=== PATIENT | male | born 1975 | race African-American/Black ===

== ENCOUNTER 2019-09-03 09:11 | Observation (INO) | payer BC, OTHER ==
[~2019-09-03] VITALS: Ht 193 cm; Wt 91.8 kg
[2019-09-03] MEDS ORDERED: MVI, ADULT NO.4 WITH VIT K 10 ML, FOLIC ACID INJ 1 MG, THIAMINE INJ 100 MG in IV RINGER... IV ONE ×4 (10:00)
[2019-09-03 10:10] LABS: BASO % 0 % (0-3); EOS % 0 % (0-3); HEMATOCRIT 46.4 % (39.0-53.0); HEMOGLOBIN 15.8 g/dL (13.0-17.5); LYMPH % 27 % (24-48); MEAN CORPUSCULAR HEMOGLOBIN 34 pg (25-35); MEAN CORPUSCULAR HGB CONC 34 g/dL (31-37); MEAN CORPUSCULAR VOLUME 100 fL (79-100); MONO # 0.9 x10^3/uL (0.0-1.1); MONO % 12 % (0-9); NEUT # 4.5 x10^3uL (1.8-7.7); NEUT % 60 % (31-73); PLATELET COUNT 113 x10^3/uL (140-400); RED BLOOD COUNT 4.64 x10^6/uL (4.30-5.70); RED CELL DISTRIBUTION WIDTH 14.9 % (11.5-14.5); WHITE BLOOD COUNT 7.5 x10^3/uL (4.0-11.0)
[2019-09-03] MEDS ORDERED: HALOPERIDOL LACT 5 MG/ML VIAL. IVP ONE (10:15)
[2019-09-03 10:19] LABS: BARBITURATES NEG (NEG); BENZODIAZEPINES NEG (NEG); CANNABINOIDS POS (NEG); COCAINE NEG (NEG); METHADONE NEG (NEG); OPIATES NEG (NEG); PHENCYCLIDINE NEG (NEG)
[2019-09-03 10:20] LABS: AMPHETAMINE/METHAMPHETAMINE NEG (NEG)
[2019-09-03 10:23] LABS: CALCIUM 8.9 mg/dL (8.5-10.1); CREATININE 0.8 mg/dL (0.7-1.3); GFR 128.3; POTASSIUM 3.9 mmol/L (3.5-5.1)
[2019-09-03 10:28] LABS: ALBUMIN 3.9 g/dL (3.4-5.0); ALBUMIN/GLOBULIN RATIO 0.9 (1.0-1.7); MAGNESIUM 1.7 mg/dL (1.8-2.4); TOTAL BILIRUBIN 0.9 mg/dL (0.2-1.0); TOTAL PROTEIN 8.2 g/dL (6.4-8.2)
--- NOTE | 2019-09-03 10:29 | PHYS DOC ---
Past History Past Medical History: No Pertinent History Past Surgical History: Other Additional Past Surgical Histo: Dental Additional Smoking Information: 1 PPD Alcohol Use: Heavy Additional Alcohol Information: reports drinking a "5th" per day Adult General Chief Complaint Chief Complaint: ALCOHOL INTOXICATION [facility] HPI Patient is a 44-year-old -[place] male with history of daily alcohol abuse who presents with acute alcohol intoxication and request for alcohol rehab. Patient has been drinking heavily daily for the past several months. Patient states he primarily drinks at night and prior to going to work. He last drink 30 minutes prior to ED arrival. Patient did contact his PCP to request hospital admission. Patient denies dizziness, headache, chest pain palpitations, shortness of breath, nausea, vomiting, hematemesis, coffee-ground emesis, abdominal pain, melena hematochezia. Reports feeling anxious and restless with the impulse to drink alcohol. No history of withdrawal seizures, hallucinations or DTs. No history of underlying coronary disease. Patient smokes marijuana but denies other drug use. [] Review of Systems Review of Systems Review of systems as per HPI. All other review of symptoms are negative. . Current Medications Current Medications Current Medications Medications (Trade) Dose Ordered Sig/Holden Start Time Stop Time Status Last Admin Dose Admin Haloperidol Lactate (Haldol) 2.5 mg 1X ONCE 09/03/19 10:15 09/03/19 10:16 DC 09/03/19 10:13 2.5 MG Multivitamins/ Minerals 10 ml/ Folic Acid 1 mg/ Thiamine HCl 100 mg/Lactated Ringer's 1,011.3 ml @ 1,011.3 mls/hr 1X ONCE 09/03/19 10:00 09/03/19 10:59 09/03/19 10:13 1,011.3 MLS/HR Allergies Allergies Allergies Coded Allergies Type Severity Reaction Last Updated Verified No Known Drug Allergies 09/03/19 No Physical Exam Physical Exam Constitutional: Well developed, well nourished, no acute distress, non-toxic appearance. [] HENT: Normocephalic, atraumatic, bilateral external ears normal, oropharynx moist, nose normal. [] Eyes: PERRLA, EOMI, conjunctiva normal, no discharge. [] Neck: Normal range of motion, no tenderness, supple. [] Cardiovascular:Heart rate regular rhythm, no murmur [] Lungs & Thorax: Bilateral breath sounds clear to auscultation [] Abdomen: Bowel sounds normal, soft, no tenderness. [] Skin: Warm, dry, no erythema, no rash. [] Back: No tenderness. [] Extremities: No tenderness, no edema. [] Neurologic: Alert and oriented X 3, normal motor function, normal sensory function, no focal deficits noted. [] Psychologic: Affect normal, judgement normal, mood normal. [] Current Patient Data Vital Signs Vital Signs Date Time Temp Pulse Resp B/P (MAP) Pulse Ox O2 Delivery O2 Flow Rate FiO2 09/03/19 09:28 98.7 97 18 147/105 (119) 98 Room Air Lab Results Laboratory Tests Test 09/03/19 09:48 09/03/19 09:54 White Blood Count 7.5 x10^3/uL (4.0-11.0) Red Blood Count 4.64 x10^6/uL (4.30-5.70) Hemoglobin 15.8 g/dL (13.0-17.5) Hematocrit 46.4 % (39.0-53.0) Mean Corpuscular Volume 100 fL (79-100) Mean Corpuscular Hemoglobin 34 pg (25-35) Mean Corpuscular Hemoglobin Concent 34 g/dL (31-37) Red Cell Distribution Width 14.9 % (11.5-14.5) H Platelet Count 113 x10^3/uL (140-400) L Neutrophils (%) (Auto) 60 % (31-73) Lymphocytes (%) (Auto) 27 % (24-48) Monocytes (%) (Auto) 12 % (0-9) H Eosinophils (%) (Auto) 0 % (0-3) Basophils (%) (Auto) 0 % (0-3) Neutrophils # (Auto) 4.5 x10^3uL (1.8-7.7) Lymphocytes # (Auto) 2.0 x10^3/uL (1.0-4.8) Monocytes # (Auto) 0.9 x10^3/uL (0.0-1.1) Eosinophils # (Auto) 0.0 x10^3/uL (0.0-0.7) Basophils # (Auto) 0.0 x10^3/uL (0.0-0.2) Sodium Level 144 mmol/L (136-145) Potassium Level 3.9 mmol/L (3.5-5.1) Chloride Level 101 mmol/L (98-107) Carbon Dioxide Level 29 mmol/L (21-32) Anion Gap 14 (6-14) Blood Urea Nitrogen 6 mg/dL (8-26) L Creatinine 0.8 mg/dL (0.7-1.3) Estimated GFR (Cockcroft-Gault) 128.3 BUN/Creatinine Ratio 8 (6-20) Glucose Level 117 mg/dL (70-99) H Calcium Level 8.9 mg/dL (8.5-10.1) Magnesium Level Pending Total Bilirubin Pending Aspartate Amino Transferase (AST) Pending Alanine Aminotransferase (ALT) Pending Alkaline Phosphatase Pending Total Protein Pending Albumin Pending Albumin/Globulin Ratio Pending Lipase Pending Ethyl Alcohol Level 280 mg/dL (0-10) H Urine Opiates Screen Neg (NEG) Urine Methadone Screen Neg (NEG) Urine Barbiturates Neg (NEG) Urine Phencyclidine Screen Neg (NEG) Urine Amphetamine/Methamphetamine Neg (NEG) Urine Benzodiazepines Screen Neg (NEG) Urine Cocaine Screen Neg (NEG) Urine Cannabinoids Screen Pos (NEG) Urine Ethyl Alcohol Pos (NEG) EKG EKG :EKG[] Radiology/Procedures Radiology/Procedures [] Course & Med Decision Making Course & Med Decision Making Pertinent Labs and Imaging studies reviewed. (See chart for details) [Alcohol intoxication with history of alcohol abuse. Alcohol given for anxiety. Will admit to Dr. Johnston for further evaluation and treatment. Dragon Disclaimer Dragon Disclaimer This electronic medical record was generated, in whole or in part, using a voice recognition dictation system. Departure Departure: Impression: Primary Impression: Alcohol intoxication Disposition: ADMITTED INPATIENT Condition: STABLE Referrals: OLAF COBB MD (PCP) ALEX VUONG DO Sep 03, 2019 10:29
[2019-09-03] MEDS ORDERED: ONDANSETRON PF 4 MG/2 ML VIAL. IVP PRN (11:00)
[2019-09-03 13:00] VITALS: BP 102/63
[2019-09-03] MEDS ORDERED: MULT1POW2 PO (13:04)
[2019-09-03] MEDS ORDERED: LORazepam 1 MG TABLET PO PRN (13:45)
[2019-09-03] MEDS ORDERED: IV NORMAL SALINE 1,000ML 1,000 ML IV SCH (13:45)
--- NOTE | 2019-09-03 14:12 | EKG ---
[address] [address] Test Date: 2019-09-03 Test Time: 09:45:21 Pat Name: GISELE ESPARZA Department: Room: Gender: M Employee Communications Coordinator: : 1975 Requested By: ALEX VUONG Order Number: [id number] Reading MD: Measurements Intervals [place] Rate: 92 P: 59 AL: 148 QRS: 52 QRSD: 98 T: 40 QT: 356 QTc: 445 Interpretive Statements SINUS RHYTHM OTHERWISE NORMAL ECG RI6.01 No previous ECG available for comparison
[2019-09-03] MEDS ORDERED: FAMOTIDINE 20 MG/2 ML VIAL IVP SCH (21:00)
[2019-09-04] MEDS ORDERED: MVI, ADULT NO.4 WITH VIT K 10 ML, THIAMINE INJ 100 MG, FOLIC ACID INJ 1 MG in IV NORMAL... IV SCH ×4 (09:00)
== END 2019-09-03 15:31 | disposition home or self-care (01) ==
LOC: ER 09:11 → INTOOBSV 10:40 → 1 SOUTH 10:40
PROVIDERS: ADMIT Family Medicine; ATTEND Family Medicine
DX: F10.129 Alcohol abuse with intoxication, unspecified (principal); F12.90 Cannabis use, unspecified, uncomplicated
CPT/HCPCS: 36415; 80053; 80307; 82150; 83690; 83735; 85025; 93005; 96365; 96375; 99284; G0378; G0480; J1630; J7120; G0379; J7030

== ENCOUNTER → 2021-09-19 | Outpatient (CLI) | payer BC ==
[~2021-09-19] MED LIST: IOHEXOL 240 MG/ML 50ML VIAL. PO ONE; IOHEXOL 300 MG/ML 75 ML VIAL. IV ONE; MULT1POW2 PO
--- NOTE | 2021-09-19 14:22 | RAD ---
CT abdomen pelvis with contrast dated 09/19/2021. COMPARISON: None available INDICATION:: Left lower quadrant pain TECHNIQUE: Contiguous axial imaging the abdomen pelvis performed after the administration of 75 cc Omnipaque 300 . One or more of the following individualized dose reduction techniques were utilized for this examinat ion: 1. Automated exposure control 2. Adjustment of the mA and/or kV according to patient size 3. Use of iterative reconstruction technique FINDINGS: Study is somewhat limited due to motion artifact. Images of lung bases are clear. Heart size within n ormal limits. No pleural or pericardial effusion. Liver and spleen are homogeneous. No apparent hepatic mass. No biliary ductal dilatation. The liver i s somewhat nodular in contour and there is a recanalized umbilical vein. Portal vein is patent. Gallb ladder surgically absent. Spleen is normal in size. Pancreas, adrenal glands and kidneys are unremarkable. No hydronephrosis. Partially opacified GI tract is normal in caliber. There is mild wall thickening of the right colon a nd hepatic flexure. The appendix is not identified and may be surgically absent. No retroperitoneal o r mesenteric adenopathy. Abdominal aorta normal in caliber. Small amount of ascites. Images of the pelvis show nondistended urinary bladder. The prostate gland is normal in size. No free fluid or lymphadenopathy. Evidence of prior right inguinal hernia repair. Bone window show no acute findings. Multilevel spondylosis. IMPRESSION: 1. No acute abnormality of abdomen or pelvis. 2. Nodular contour the liver suggesting cirrhosis. There is recanalized umbilical vein consistent wit h portal hypertension. 3. Mild wall thickening of the right colon, nonspecific. This could be a manifestation of hepatocellu lar disease. Infectious or inflammatory colitis is another consideration. Electronically signed by: Carlin Rubin MD (09/19/2021 2:19 PM) [facility]
== END ==
LOC: RAD 12:19
PROVIDERS: ATTEND Nurse Practitioner Family
DX: R10.32 Left lower quadrant pain (principal)
CPT/HCPCS: 74177; Q9966; Q9967